=== PATIENT | female | born 1970 | race Caucasian/White ===

== ENCOUNTER 2020-03-26 16:13 | Emergency (ER) | payer MEDICAID ==
[~2020-03-26] VITALS: Ht 157.5 cm; Wt 97.7 kg
[~2020-03-26 16:13] MED LIST: ALBU8HFA PO; AMOX-580 PO; BUDE10.27 INH; CHOL500050 PO; HYDR-4353 PO; LORA10TA7 PO; MONT10TA97 PO
[2020-03-26 16:19] VITALS: BP 190/96
== END 2020-03-26 18:16 | disposition home or self-care (01) ==
LOC: ER 16:14
DX: K46.9 Unspecified abdominal hernia without obstruction or gangrene (principal); Z48.00 Encounter for change or removal of nonsurgical wound dressing; Z88.5 Allergy status to narcotic agent; Z79.899 Other long term (current) drug therapy
CPT/HCPCS: 99281

== ENCOUNTER 2020-04-02 10:21 | Outpatient (CLI) | payer MEDICAID ==
--- NOTE | 2020-03-30 14:49 | NUR ---
Late entry: Vitals: BP 154/81 HR 92bpm RR 16bpm O2 98% Pt presented for wound vac dressing change. Removed 2 white foam and 1 piece of intact black foam from wound bed. Wound measures 4.5 cm x 18.3 cm x 8 cm. No signs of infection noted to area. Cleansed with wound cleanser, rinsed with saline, used 2 pieces of white foam and 1 piece of black foam to achieve adequate seal with VAC set at 125 mmHg cont low suction. Pt tolerated procedure well.
[2020-04-02] MEDS ORDERED: LIDOcaine 2% 5ml jelly ONE (10:59)
[2020-04-05] MEDS ORDERED: HYDR-4353 PO (15:36)
[2020-04-05] MEDS ORDERED: AMOX-580 PO (16:43)
== END 2020-04-02 23:59 | disposition home or self-care (01) ==
LOC: WOUND CARE 10:21
PROVIDERS: ATTEND Nurse Practitioner
DX: T81.89XA Other complications of procedures, not elsewhere classified, initial encounter (principal); J45.909 Unspecified asthma, uncomplicated; Z79.899 Other long term (current) drug therapy; Z88.5 Allergy status to narcotic agent; Z90.49 Acquired absence of other specified parts of digestive tract; Y83.8 Other surgical procedures as the cause of abnormal reaction of the patient, or of later complication, without mention of misadventure at the time of the procedure; Y92.238 Other place in hospital as the place of occurrence of the external cause
CPT/HCPCS: 97605

== ENCOUNTER 2020-04-12 10:59 | Outpatient (CLI) | payer MEDICAID ==
[~2020-04-12 10:59] MED LIST changes: -AMOX-580 PO; +LEVO500T89 PO
[2020-04-12] MEDS ORDERED: LIDOcaine 4% (40 mg/ml) topical solution 50ml ONE (11:36)
== END 2020-04-12 23:59 | disposition home or self-care (01) ==
LOC: WOUND CARE 10:59
PROVIDERS: ATTEND Nurse Practitioner Family
DX: T81.31XD Disruption of external operation (surgical) wound, not elsewhere classified, subsequent encounter (principal); J45.909 Unspecified asthma, uncomplicated; Z79.899 Other long term (current) drug therapy; Z90.49 Acquired absence of other specified parts of digestive tract; Y83.8 Other surgical procedures as the cause of abnormal reaction of the patient, or of later complication, without mention of misadventure at the time of the procedure
CPT/HCPCS: 97597; 97598

== ENCOUNTER → 2020-04-14 | Outpatient (CLI) | payer MEDICAID ==
[~2020-04-14] MED LIST changes: +LIDOcaine 2% 5ml jelly ONE
== END | disposition home or self-care (01) ==
LOC: WOUND CARE 10:49
PROVIDERS: ATTEND Nurse Practitioner Family
DX: T81.31XD Disruption of external operation (surgical) wound, not elsewhere classified, subsequent encounter (principal); J45.909 Unspecified asthma, uncomplicated; Z79.899 Other long term (current) drug therapy; Z90.49 Acquired absence of other specified parts of digestive tract; Y83.8 Other surgical procedures as the cause of abnormal reaction of the patient, or of later complication, without mention of misadventure at the time of the procedure
CPT/HCPCS: 97605

== ENCOUNTER 2020-04-19 09:44 | Outpatient (CLI) | payer MEDICAID ==
[~2020-04-19 09:44] MED LIST changes: -LEVO500T89 PO; -LIDOcaine 2% 5ml jelly ONE
[2020-04-19] MEDS ORDERED: LIDOcaine 2% 5ml jelly ONE (10:33)
== END 2020-04-19 23:59 | disposition home or self-care (01) ==
LOC: WOUND CARE 09:44
PROVIDERS: ATTEND Nurse Practitioner Family
DX: T81.31XD Disruption of external operation (surgical) wound, not elsewhere classified, subsequent encounter (principal); J45.909 Unspecified asthma, uncomplicated; Z79.899 Other long term (current) drug therapy; Z90.49 Acquired absence of other specified parts of digestive tract; Y83.8 Other surgical procedures as the cause of abnormal reaction of the patient, or of later complication, without mention of misadventure at the time of the procedure
CPT/HCPCS: 97605

== ENCOUNTER 2020-04-22 10:09 | Outpatient (CLI) | payer MEDICAID ==
[2020-04-22] MEDS ORDERED: LIDOcaine 2% 5ml jelly ONE (10:41)
== END 2020-04-22 23:59 | disposition home or self-care (01) ==
LOC: WOUND CARE 10:09
PROVIDERS: ATTEND Nurse Practitioner
DX: T81.31XD Disruption of external operation (surgical) wound, not elsewhere classified, subsequent encounter (principal); J45.909 Unspecified asthma, uncomplicated; Z79.899 Other long term (current) drug therapy; Z90.49 Acquired absence of other specified parts of digestive tract; Y83.8 Other surgical procedures as the cause of abnormal reaction of the patient, or of later complication, without mention of misadventure at the time of the procedure
CPT/HCPCS: 11042